=== PATIENT | female | born 1970 | race Caucasian/White ===

== ENCOUNTER 2021-06-14 06:45 | Outpatient (CLI) | payer MEDICARE, MEDICAID | END 2021-06-14 23:59 | disposition home or self-care (01) | LOC: CFH 06:45 | PROVIDERS: ATTEND Internal Medicine Cardiovascular Disease | DX: I35.8 Other nonrheumatic aortic valve disorders (principal); I25.9 Chronic ischemic heart disease, unspecified; I21.29 ST elevation (STEMI) myocardial infarction involving other sites; R07.89 Other chest pain; R94.31 Abnormal electrocardiogram [ECG] [EKG]; I11.9 Hypertensive heart disease without heart failure | CPT/HCPCS: 78452; 93017; 93306; A9502 ==

== ENCOUNTER 2021-06-26 11:26 | Observation (INO) | payer MEDICARE, MEDICAID ==
[~2021-06-26] VITALS: Ht 165.1 cm; Wt 71.9 kg
[2021-06-27 06:56] VITALS: BP 136/90
== END 2021-06-27 12:00 | disposition home or self-care (01) ==
LOC: ED 14:39 → INTOOBSV 14:42 → EDIP 14:42 → 5SO 16:44
PROVIDERS: ADMIT Internal Medicine; ATTEND Family Medicine
DX: R07.89 Other chest pain (principal); Z20.822 Contact with and (suspected) exposure to COVID-19; I10 Essential (primary) hypertension; I20.0 Unstable angina; G90.50 Complex regional pain syndrome I, unspecified; F41.1 Generalized anxiety disorder; I25.2 Old myocardial infarction; G43.909 Migraine, unspecified, not intractable, without status migrainosus; Z87.19 Personal history of other diseases of the digestive system; Z79.899 Other long term (current) drug therapy